=== PATIENT | male | born 1950 | race Caucasian/White ===

== ENCOUNTER → 2018-07-14 | Emergency (ER) | payer OTHER ==
[~2018-07-14] VITALS: Ht 177.8 cm; Wt 104.8 kg
[~2018-07-14] MED LIST: VITAMIN B-121000 MC2 SL
== END | disposition home or self-care (01) ==
LOC: ER 08:47 → EDBD 09:14 → ER 09:14
DX: B34.9 Viral infection, unspecified (principal); J11.1 Influenza due to unidentified influenza virus with other respiratory manifestations